=== PATIENT | female | born 1955 | race Hispanic/Latino ===

== ENCOUNTER 2018-09-23 20:23 | Emergency (ER) | payer OTHER | END 2018-09-23 21:25 | disposition home or self-care (01) | LOC: EDH 20:23 | DX: S52.591A Other fractures of lower end of right radius, initial encounter for closed fracture (principal); Z90.710 Acquired absence of both cervix and uterus; W18.39XA Other fall on same level, initial encounter; Y93.89 Activity, other specified; Y92.098 Other place in other non-institutional residence as the place of occurrence of the external cause; Y99.8 Other external cause status | CPT/HCPCS: 29125; 73090; 73110 ==

== ENCOUNTER 2018-12-06 10:52 | Emergency (ER) | payer OTHER, SELFPAY ==
[2018-12-06] MEDS ORDERED: BENZOCAINE/LANOLIN/ALOE VERA 60 ML AEROSOL TP ONE (11:20)
[2018-12-06] MEDS ORDERED: ACETAMINOPHEN EXTRA STRENGTH 500 MG TABLET ONE (11:20)
[2018-12-06] MEDS ORDERED: LORATADINE 10 MG TABLET ONE (11:20)
== END 2018-12-06 12:03 | disposition home or self-care (01) ==
LOC: EDH 10:52
DX: T63.391A Toxic effect of venom of other spider, accidental (unintentional), initial encounter (principal); Y92.218 Other school as the place of occurrence of the external cause